=== PATIENT | male | born 1980 | race Caucasian/White ===

== ENCOUNTER 2019-03-13 17:20 | Emergency (ER) | payer OTHER ==
[2019-03-13 17:39] VITALS: BP 118/83
--- NOTE | 2019-03-13 17:52 | UC ---
Lower Extremity/Ankle HPI - HPI Summary HPI Summary: 38-year-old male with no known injury to his left foot. States that 2 weeks ago he started having some sharp foot pain to the dorsal aspect. No bruising erythema or swelling. He's had full range of motion. He put an Jonathan bandage on which causes her to feel better and the pain went away. He states today he was walking and he felt a sharp pain to the dorsal aspect again. He is ambulatory. - History of Current Complaint Chief Complaint: UCLowerExtremity Stated Complaint: FOOT INJURY Time Seen by Provider: 03/13/19 17:36 Hx Obtained From: Patient Onset/Duration: Sudden Onset, Lasting Weeks Severity Initially: Mild Severity Currently: Mild Pain Intensity: 6 Aggravating Factor(s): Ambulation Alleviating Factor(s): Rest Able to Bear Weight: Yes - Allergies/Home Medications Allergies/Adverse Reactions: Allergies Allergy/AdvReac Type Severity Reaction Status Date / Time No Known Allergies Allergy Verified 12/16/13 13:57 PMH/Surg Hx/FS Hx/Imm Hx Previously Healthy: Yes - Surgical History Surgical History: Yes Surgery Procedure, Year, and Place: 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 - Family History Known Family History: Positive: Non-Contributory - Social History Occupation: Employed Full-time - Works as a assistant mechanic Alcohol Use: None Substance Use Type: None Smoking Status (MU): Never Smoked Tobacco Review of Systems All Other Systems Reviewed And Are Negative: Yes Motor: Positive: Negative Neurovascular: Positive: Negative Musculoskeletal: Positive: Negative Neurological: Positive: Negative Is Patient Immunocompromised?: No Physical Exam Triage Information Reviewed: Yes Appearance: Well-Appearing, No Pain Distress, Well-Nourished Vital Signs: Initial Vital Signs Temp 99.2 F 03/13/19 17:36 Pulse 100 03/13/19 17:36 Resp 18 03/13/19 17:36 BP 118/83 03/13/19 17:36 Pulse Ox 98 03/13/19 17:36 Vital Signs Reviewed: Yes Musculoskeletal: Positive: Strength Intact, ROM Intact - Patient feels a mild pulling sensation when he extends his foot. There is no erythema, deformity, swelling or bruising noted. Achilles is intact. Heel is nontender. Base of the first and fifth metatarsals are nontender. Neurological Exam: Normal Psychological Exam: Normal Skin Exam: Normal Lower Extremity Course/Dx - Course Course Of Treatment: Left foot x-ray:FINDINGS: The adequately corticated bones are properly aligned. Joint spaces appear maintained. No fracture, dislocation or focal bony abnormality is seen. IMPRESSION: Normal radiograph of the left foot. If the patient's symptoms persist, follow-up imaging is recommended. A 3 inch Jonathan bandages were applied. The patient is to elevate his foot as much as possible. I believe this is more of an overuse injury and the type of work boots that he wears. He is to follow-up with the orthopedist if no improvement into next week. - Differential Dx/Diagnosis Provider Diagnosis: Strain of foot Discharge - Sign-Out/Discharge Documenting (check all that apply): Patient Departure All imaging exams completed and their final reports reviewed: Yes - Discharge Plan Condition: Stable Disposition: HOME Patient Education Materials: Foot Sprain (ED) Referrals: No Primary Care Phys,[facility] [Primary Care Provider] - Daija Heredia MD [Medical Doctor] - Additional Instructions: You can take Motrin every 8 hours with food and ambulate as pain permits. Definite follow-up with the orthopedist if no improvement in 4 or 5 days or if continued pain. - Billing Disposition and Condition Condition: STABLE Disposition: Home
== END 2019-03-13 18:53 | disposition home or self-care (01) ==
LOC: UCEAST 17:20
DX: S96.912A Strain of unspecified muscle and tendon at ankle and foot level, left foot, initial encounter (principal); X58.XXXA Exposure to other specified factors, initial encounter; Y92.9 Unspecified place or not applicable
CPT/HCPCS: 99202; G0463